=== PATIENT | male | born 1980 | race Caucasian/White ===

== ENCOUNTER 2020-07-05 00:35 | Emergency (ER) | payer MEDICAID ==
[~2020-07-05] VITALS: Ht 172.7 cm; Wt 76.7 kg
[2020-07-05 01:05] VITALS: BP 103/67
--- NOTE | 2020-07-05 01:11 | NUR ---
PT AMBULATORY TO LOBBY TO A/W BED
--- NOTE | 2020-07-05 01:41 | NUR ---
Patient being evaluated by physician.
[2020-07-05] MEDS ORDERED: SULFAMETH/TRIMETH DS 800/160MG 1 TAB PO ONE (01:50)
[2020-07-05] MEDS ORDERED: KETOROLAC 30 MG/ML VIAL IM ONE (01:50)
--- NOTE | 2020-07-05 02:43 | NUR ---
PT CALLED IN LOBBY AND OUTSIDE WITH NO ORDER.
--- NOTE | 2020-07-05 02:57 | NUR ---
PT CALLED IN LOBBY AND OUTSIDE WITH NO ANSWER. PATIENT ELOPED FROM FACILITY. DISCHARGE INSTRUCTIONS NOT GIVEN TO PATIENT. DR. ARENAS NOTIFIED.
== END 2020-07-05 02:57 | disposition left against medical advice (07) ==
LOC: MED 00:35
DX: L02.413 Cutaneous abscess of right upper limb (principal)
CPT/HCPCS: 99281

== ENCOUNTER 2023-06-04 17:12 | Emergency (ER) | payer MEDICAID ==
[~2023-06-04] VITALS: Ht 172.7 cm; Wt 81.6 kg
[2023-06-04 17:13] VITALS: BP 122/79; PULSE 68; RESP 20; TEMP 98.7; O2SAT 98
[2023-06-04] MEDS: LIDOCAINE MPF 1% 10 MG/ML VIAL INJ ONE (18:03)
[2023-06-04] MEDS: IBUPROFEN 600 MG TAB PO ONE (18:03)
[2023-06-04] MEDS ORDERED: IBUP-2213 PO (19:03)
[2023-06-04] MEDS ORDERED: BACI-418 TP (19:03)
== END 2023-06-04 19:20 | disposition home or self-care (01) ==
LOC: MED 17:12
DX: S61.412A Laceration without foreign body of left hand, initial encounter (principal); Z79.899 Other long term (current) drug therapy; W26.8XXA Contact with other sharp object(s), not elsewhere classified, initial encounter; Y93.89 Activity, other specified; Y92.89 Other specified places as the place of occurrence of the external cause; Y99.8 Other external cause status
CPT/HCPCS: 12001; 99282; J2001

== ENCOUNTER 2023-06-14 17:53 | Emergency (ER) | payer MEDICAID ==
[~2023-06-14] VITALS: Ht 172.7 cm; Wt 81.6 kg
[~2023-06-14 17:53] MED LIST: BACI-418 TP; IBUP-2213 PO
[2023-06-14 17:54] VITALS: BP 111/67; PULSE 109; RESP 16; TEMP 98; O2SAT 98
== END 2023-06-14 18:32 | disposition home or self-care (01) ==
LOC: MED 17:53
DX: S61.211D Laceration without foreign body of left index finger without damage to nail, subsequent encounter (principal); Z79.1 Long term (current) use of non-steroidal anti-inflammatories (NSAID); Z79.899 Other long term (current) drug therapy; X58.XXXD Exposure to other specified factors, subsequent encounter
CPT/HCPCS: 99281

== ENCOUNTER 2023-09-15 | Inpatient (IN) | payer MEDICAID ==
[~2023-09-15] VITALS: Ht 172.7 cm; Wt 75.7 kg
[2023-09-15 23:58] VITALS: BP 125/74; PULSE 110; RESP 20; TEMP 98.5; O2SAT 98
[2023-09-16] VITALS (8 sets, daily range): BP systolic 119–126; BP diastolic 71–79; PULSE 60–95; RESP 16–26; TEMP 96.6–97.2; O2SAT 2–100
[2023-09-16] MEDS: ALBUTEROL 0.083% 2.5 MG/3 ML NEBU INH ONE (00:23)
[2023-09-16 00:43] LABS: APPEARANCE,URINE HAZY (CLEAR); BILIRUBIN,URINE NEGATIVE (NEGATIVE); BLOOD, URINE NEGATIVE (NEGATIVE); COLOR,URINE YELLOW (YELLOW); LEUKOCYTE ESTERASE ,URINE NEGATIVE (NEGATIVE); NITRITE, URINE NEGATIVE (NEGATIVE); PH,URINE 7.5 (5.0-9.0); PROTEIN,URINE NEGATIVE (NEGATIVE); UGLUCOSE NEGATIVE (NEGATIVE)
[2023-09-16] MEDS: NACL 0.9% 1,000 ML IV ONE (00:54)
[2023-09-16 00:56] LABS: BASOPHILS % (AUTO) 0.3 % (0.0-2.0); EOSINOPHILS # (AUTO) 0.1 K/uL (0-0.4); EOSINOPHILS % (AUTO) 0.4 % (0.0-4.0); HEMATOCRIT 30.4 % (36-52); HEMOGLOBIN 10.5 g/dL (12.0-18.0); LYMPHOCYTES % (AUTO) 15.5 % (20.5-51.1); MEAN CORPUSCULAR HEMOGLOBIN 28 pg (27-31); MEAN CORPUSCULAR HGB CONC 34 g/dL (33-37); MEAN CORPUSCULAR VOLUME 82.6 fL (80-94); MONOCYTES # (AUTO) 0.9 K/uL (0.8-1.0); MONOCYTES % (AUTO) 6.9 % (1.7-9.3); NEUTROPHILS # (AUTO) 9.9 K/uL (1.8-7.7); NEUTROPHILS % (AUTO) 76.9 % (42.2-75.2); PLATELET COUNT (AUTO) 376 K/uL (140-450); RED BLOOD CELL COUNT(AUTO) 3.69 MIL/uL (4.20-6.10); RED CELL DISTRIBUTION WIDTH 13.9 % (11.6-13.7); WHITE BLOOD COUNT (AUTO) 12.9 K/uL (4.8-10.8)
[2023-09-16 01:01] LABS: AMPHETAMINE, URINE POSITIVE ng/ml (NEG <=1000); BARBITURATE, URINE NEGATIVE ng/ml (NEG <=200); BENZODIAZEPINE, URINE NEGATIVE ng/mL (NEG <=200); CANNABINOID, URINE NEGATIVE ng/mL (NEG <=50); COCAINE, URINE POSITIVE ng/mL (NEG <=300); OPIATE, URINE POSITIVE ng/mL (NEG <=2000); PHENCYCLIDINE SCREEN,URINE NEGATIVE ng/mL (NEG <=25)
[2023-09-16 01:02] LABS: ANION GAP 7.9 (8-16); CALCIUM 8.9 mg/dL (8.5-10.1); CARBON DIOXIDE 32.4 mmol/L (21-32); CREATININE 0.9 mg/dL (0.6-1.3); POTASSIUM 4.3 mmol/L (3.5-5.1)
[2023-09-16 01:05] LABS: INR 1.11 (0.8-1.2); PARTIAL THROMBOPLASTIN TIME 34.1 secs (22-35.6); PROTHROMBIN TIME 11.5 secs (10.8-13.4)
[2023-09-16 01:07] LABS: BILIRUBIN,DIRECT 0.1 mg/dL (0.0-0.3); TOTAL BILIRUBIN 0.3 mg/dL (0.0-1.0); TOTAL PROTEIN, SERUM 8.4 g/dL (6.4-8.2)
[2023-09-16 01:11] LABS: LACTIC ACID 1.3 mmol/L (0.4-2.0)
[2023-09-16] MEDS ORDERED: PIPERACILLIN/TAZOBACTAM 3.375 GM VIAL IV ONE (01:15)
[2023-09-16 01:16] LABS: BACTERIA,URINE OCCASSIONAL /HPF (None Seen); RBC,URINE NONE SEEN /HPF (0-5); SQUAMOUS EPITHELIAL CELL,UR 0-3 (FEW) /LPF (0-3 (FEW)); URINE AMORPHOUS PHOSPHATES 2+ /HPF (None Seen); WBC,URINE 0-5 /HPF (0-5)
[2023-09-16] MEDS: PIPERACILLIN/TAZOBACTAM 3.375 GM in DEXTROSE 5% 50 ML IV ONE (01:18)
[2023-09-16 01:44] LABS: BLOOD GAS HCO3 25.4 mmol/L (22-26); BLOOD GAS PCO2 39.2 mmHg (35-45); BLOOD GAS PO2 74.7 mmHg (75-100)
[2023-09-16 01:45] LABS: BLOOD GAS BASE EXCESS 1.1 mmol/L (-2.0-2.0); BLOOD GAS O2 SAT% 94.6 % (92.0-98.5)
[2023-09-16] MEDS: LEVOFLOXACIN 500 MG/D5W PREMIX 100 ML IV ONE (02:08)
[2023-09-16] MEDS ORDERED: ALBUTEROL 0.083% 2.5 MG/3 ML NEBU INH PRN (04:20)
[2023-09-16] MEDS: NACL 0.9% 1,000 ML IV SCH (04:34)
[2023-09-16 06:43] LABS: FLU B ANTIGEN NEGATIVE (NEGATIVE)
[2023-09-16 06:48] LABS: FLU A ANTIGEN POSITIVE (NEGATIVE)
[2023-09-16 09:35] LABS: MAGNESIUM 1.9 mg/dL (1.8-2.4); PHOSPHORUS 3.7 mg/dL (2.5-4.9)
[2023-09-16] MEDS ORDERED: OSELTAMIVIR PHOSPHATE 75 MG CAP PO SCH (11:05)
[2023-09-16] MEDS: PIPERACILLIN/TAZOBACTAM 3.375 GM in DEXTROSE 5% 50 ML IV SCH (13:21)
[2023-09-16] MEDS: OSELTAMIVIR PHOSPHATE 75 MG CAP PO SCH (22:00)
[2023-09-17] VITALS (8 sets, daily range): BP systolic 102–123; BP diastolic 64–80; PULSE 65–99; RESP 12–26; TEMP 96.4–97.5; O2SAT 2–100
[2023-09-17] MEDS: LEVOFLOXACIN 500 MG/D5W PREMIX 100 ML IV SCH (01:39)
[2023-09-17 06:05] LABS: BASOPHILS % (AUTO) 0.7 % (0.0-2.0); EOSINOPHILS # (AUTO) 0.2 K/uL (0-0.4); EOSINOPHILS % (AUTO) 2.6 % (0.0-4.0); HEMATOCRIT 31.7 % (36-52); HEMOGLOBIN 10.9 g/dL (12.0-18.0); LYMPHOCYTES # (AUTO) 1.4 K/uL (2.0-11.5); LYMPHOCYTES % (AUTO) 21.2 % (20.5-51.1); MEAN CORPUSCULAR HEMOGLOBIN 28 pg (27-31); MEAN CORPUSCULAR HGB CONC 34 g/dL (33-37); MEAN CORPUSCULAR VOLUME 82.2 fL (80-94); MONOCYTES # (AUTO) 0.4 K/uL (0.8-1.0); MONOCYTES % (AUTO) 6.4 % (1.7-9.3); NEUTROPHILS # (AUTO) 4.5 K/uL (1.8-7.7); NEUTROPHILS % (AUTO) 69.1 % (42.2-75.2); PLATELET COUNT (AUTO) 297 K/uL (140-450); RED BLOOD CELL COUNT(AUTO) 3.86 MIL/uL (4.20-6.10); RED CELL DISTRIBUTION WIDTH 13.6 % (11.6-13.7); WHITE BLOOD COUNT (AUTO) 6.5 K/uL (4.8-10.8)
[2023-09-17 06:46] LABS: ANION GAP 7.4 (8-16); CALCIUM 8.6 mg/dL (8.5-10.1); CARBON DIOXIDE 29.5 mmol/L (21-32); CREATININE 0.8 mg/dL (0.6-1.3); POTASSIUM 3.9 mmol/L (3.5-5.1)
[2023-09-17 07:12] LABS: MAGNESIUM 2.1 mg/dL (1.8-2.4); PHOSPHORUS 4.5 mg/dL (2.5-4.9)
[2023-09-17] MEDS ORDERED: LEVOFLOXACIN 500 MG/D5W PREMIX 100 ML IV SCH (09:00)
[2023-09-17] MEDS: guaiFENesin 600 MG TABER PO PRN (21:30)
[2023-09-18 00:29] VITALS: O2SAT 97
[2023-09-18 05:30] VITALS: BP 104/69; PULSE 73; RESP 18; TEMP 97.2; O2SAT 97
[2023-09-18 06:12] LABS: BASOPHILS % (AUTO) 0.8 % (0.0-2.0); EOSINOPHILS # (AUTO) 0.1 K/uL (0-0.4); HEMATOCRIT 31.5 % (36-52); HEMOGLOBIN 10.8 g/dL (12.0-18.0); LYMPHOCYTES # (AUTO) 1.7 K/uL (2.0-11.5); MEAN CORPUSCULAR HEMOGLOBIN 28 pg (27-31); MEAN CORPUSCULAR HGB CONC 34 g/dL (33-37); MONOCYTES # (AUTO) 0.3 K/uL (0.8-1.0); MONOCYTES % (AUTO) 6.8 % (1.7-9.3); NEUTROPHILS # (AUTO) 2.5 K/uL (1.8-7.7); NEUTROPHILS % (AUTO) 53.4 % (42.2-75.2); PLATELET COUNT (AUTO) 326 K/uL (140-450); RED BLOOD CELL COUNT(AUTO) 3.85 MIL/uL (4.20-6.10); RED CELL DISTRIBUTION WIDTH 13.7 % (11.6-13.7); WHITE BLOOD COUNT (AUTO) 4.7 K/uL (4.8-10.8)
[2023-09-18 06:33] LABS: ANION GAP 10.1 (8-16); CALCIUM 8.7 mg/dL (8.5-10.1); CARBON DIOXIDE 29.8 mmol/L (21-32); POTASSIUM 3.9 mmol/L (3.5-5.1)
[2023-09-18 08:00] VITALS: BP 110/76; PULSE 76; RESP 18; TEMP 96.9
== END 2023-09-18 10:00 | disposition left against medical advice (07) | DRG 720 ==
LOC: MED 09-16 → MTU 09-16 04:28 → MMU 09-16 10:20
PROVIDERS: ADMIT Student in an Organized Health Care Education/Training Program; ATTEND Student in an Organized Health Care Education/Training Program
DX: A41.9 Sepsis, unspecified organism (principal); E44.0 Moderate protein-calorie malnutrition; J18.9 Pneumonia, unspecified organism; F11.90 Opioid use, unspecified, uncomplicated; Z20.822 Contact with and (suspected) exposure to COVID-19; J10.1 Influenza due to other identified influenza virus with other respiratory manifestations; F14.90 Cocaine use, unspecified, uncomplicated; F15.90 Other stimulant use, unspecified, uncomplicated; J45.909 Unspecified asthma, uncomplicated; Z53.29 Procedure and treatment not carried out because of patient's decision for other reasons; Z79.899 Other long term (current) drug therapy; Z68.25 Body mass index [BMI] 25.0-25.9, adult
CPT/HCPCS: 36415; 36600; 71045; 80048; 80076; 80305; 81001; 82803; 83605; 83735; 84100; 85025; 85610; 85730; 87040; 87081; 87086; 96374; 96375; 97110; 97163-GP; 97530; 99285; J1956; J2543; J7060; J7613; Q0092